=== PATIENT | female | born 1995 | race Caucasian/White ===

== ENCOUNTER 2018-03-01 15:40 | Emergency (ER) | payer OTHER ==
[~2018-03-01] VITALS: Ht 165.1 cm; Wt 68.0 kg
--- OUTSIDE RECORDS SUMMARY | 2018-03-01 15:43 | XMS REPORT | Clinical Summary ---
Author Author [facility] Address Unknown Phone Unavailable Care Team Providers Care Director Of Digital Technology Name Role Phone Sandy Davis MD PCP Allergies No Known Allergies Current Medications Prescription Sig. Disp. Refills Start End Date Status Date naproxen (NAPROSYN) 250 Take 250 mg by mouth 2 Active MG tablet (two) times a day as needed for mild pain. BLISOVI FE 05/27, , 1 TAKE 1 TABLET BY MOUTH 84 tablet 0 12/30/19 Active mg-20 mcg (21)/75 mg (7) EVERY DAY 18 per tablet BLISOVI FE 05/27, , 1 Take 1 tablet by mouth 3 06/21/19 12/29/19 Discontin mg-20 mcg (21)/75 mg (7) daily. 18 18 ued per tablet tiZANidine (ZANAFLEX) 2 Take 1 tablet (2 mg 30 tablet 2 12/12/19 01/11/20 MG tablet total) by mouth nightly 18 18 as needed for muscle spasms for up to 30 days. Active Problems Not on file Encounters Date Type Specialty Care Team Description 01/23/2018 Clinical Internal Medicine Sandy Davis MD Immunization due (Primary Support Dx) 12/28/2017 Refill Internal Medicine Sandy Davis MD 12/11/2017 Office Visit Internal Medicine Sandy Davis MD Chronic upper back pain (Primary Dx) 08/02/2017 Office Visit Internal Medicine Sandy Davis MD Well adult health check (Primary Dx); Urgency of urination; Pap smear for cervical cancer screening; Mass of right axilla; Mass of breast, right after 02/28/2017 Immunizations Name Dates Previously Given Next Due INFLUENZA QUAD 01/23/2018 Family History Medical History Relation Name Comments No Known Problems Brother Hyperlipidemia Father Multiple sclerosis Mother No Known Problems Sister No Known Problems Sister No Known Problems Sister Relation Name Status Comments Brother Alive Father Alive Maternal Grandfather Alive Maternal Grandmother Alive Mother Alive Paternal Grandfather Alive injury related problems. Paternal Grandmother Alive Sister Alive Sister Alive Sister Alive Social History Tobacco Use Types Packs/Day Years Used Date Never Smoker Smokeless Tobacco: Never Used Alcohol Use Drinks/Week oz/Week Comments No Sex Assigned at Date Recorded Not on file Last Filed Vital Signs Vital Sign Reading Time Taken Blood Pressure 109/70 12/11/2017 3:57 PM CDT Pulse 74 12/11/2017 3:57 PM CDT Temperature 36.8 C (98.2 F) 12/11/2017 3:57 PM CDT Respiratory Rate 16 12/11/2017 3:57 PM CDT Oxygen Saturation 97% 12/11/2017 3:57 PM CDT Inhaled Oxygen - - Concentration Weight 69.9 kg (154 lb) 12/11/2017 3:57 PM CDT Height 162.6 cm (5' 4") 12/11/2017 3:57 PM CDT Body Mass Index 26.43 12/11/2017 3:57 PM CDT Plan of Treatment Health Maintenance Due Date Last Done Comments CHLAMYDIA SCREENING 2009 CERVICAL CANCER SCREENING 2014 INFLUENZA VACCINE Completed 01/23/2018, 01/23/2018 Procedures Procedure Name Priority Date/Time Associated Diagnosis Comments INFLUENZA QUAD (FLUZONE Routine 01/23/2018 Immunization due 0.5ML MULTI-DOSE VIAL) 8:06 AM CDT US BREAST BILATERAL Routine 08/23/2017 LIMITED 12:00 AM CDT URINALYSIS, AUTOMATED Routine 08/02/2017 Well adult health check Results for this WITH MICROSCOPY 11:43 AM CDT procedure are in the results section. THYROID STIMULATING Routine 08/02/2017 Well adult health check Results for this HORMONE 11:43 AM CDT procedure are in the results section. LIPID PANEL Routine 08/02/2017 Well adult health check Results for this 11:43 AM CDT procedure are in the results section. VITAMIN D 25 HYDROXY Routine 08/02/2017 Well adult health check Results for this LEVEL 11:43 AM CDT procedure are in the results section. HEMOGLOBIN A1C Routine 08/02/2017 Well adult health check Results for this 11:43 AM CDT procedure are in the results section. COMPREHENSIVE METABOLIC Routine 08/02/2017 Well adult health check Results for this PANEL 11:43 AM CDT procedure are in the results section. CBC WITH PLATELET AND Routine 08/02/2017 Well adult health check Results for this DIFFERENTIAL 11:43 AM CDT procedure are in the results section. POC URINALYSIS DIPSTICK Routine 08/02/2017 Urgency of urination Results for this 11:29 AM CDT procedure are in the results section. after 02/28/2017 Results * Influenza Quad (Fluzone 0.5mL multi-dose vial) (01/23/2018 8:06 AM) * US Breast Bilateral Limited (08/23/2017) Narrative Performed At * Vitamin D 25 hydroxy level (08/02/2017 11:43 AM) Vitamin D, 25-hydroxy 34 30 - 100 ng/mL [facility] Comment: [place] Vitamin D Status 25-OH Vitamin D: Deficiency: <20 ng/mL Insufficiency: 20 - 29 ng/mL Optimal: > or=30 ng/mL For 25-OH Vitamin D testing on patients on D2-supplementation and patients for whom quantitation of D2 and D3 fractions is required, the QuestAssureD(TM) 25-OH VIT D, (D2,D3), LC/MS/MS is recommended: order code 34573 (patients >2yrs). For more information on this test, go to: http://education.[employer].XOG/faq/ZCD522 (This link is being provided for informational/educational purposes only.) Specimen Blood Other Results Text Performing Organization Information: Site ID: [id number] Name: [facility] Address: [address] [place] [phone] Director: Natalia Moseley MD Performing Organization Address City/State/Zipcode Phone Number [facility] [place] [phone] * Urinalysis, automated with microscopy (08/02/2017 11:43 AM) Color, UA YELLOW YELLOW [facility] [place] Appearance CLEAR CLEAR [facility] [place] Specific gravity, urine 1.018 1.001 - 1.035 [facility] [place] pH, urine 6.5 5.0 - 8.0 [facility] [place] Glucose, urine NEGATIVE NEGATIVE [facility] [place] Bilirubin, UA NEGATIVE NEGATIVE [facility] [place] Ketones, UA NEGATIVE NEGATIVE [facility] [place] Occult blood, urine NEGATIVE NEGATIVE [facility] [place] Protein, UA NEGATIVE NEGATIVE [facility] [place] Nitrite, UA NEGATIVE NEGATIVE [facility] [place] Leukocyte esterase, UA NEGATIVE NEGATIVE [facility] [place] WBC, UA NONE SEEN < OR=5 /HPF [facility] [place] RBC, UA NONE SEEN < OR=2 /HPF [facility] [place] Squamous epithelial NONE SEEN < OR=5 /HPF [facility] cells, UA [place] Bacteria, UA NONE SEEN NONE SEEN /HPF [facility] [place] Hyaline casts, UA NONE SEEN NONE SEEN /LPF [facility] [place] Specimen Urine Other Results Text Performing Organization Information: Site ID: [id number] Name: [facility] Address: [address] [place] [address] Director: Natalia Moseley MD Performing Organization Address City/State/Zipcode Phone Number [facility] [employer] [facility] [place] [address] [place] [address] * CBC with platelet and differential (08/02/2017 11:43 AM) WBC 6.1 3.8 - 10.8 Thousand/uL [facility] [place] RBC 4.82 3.80 - 5.10 Million/uL [facility] [place] HGB 14.1 11.7 - 15.5 g/dL [facility] [place] HCT 42.0 35.0 - 45.0 % [facility] [place] MCV 87.1 80.0 - 100.0 fL [facility] [place] MCH 29.3 27.0 - 33.0 pg [facility] [place] MCHC 33.6 32.0 - 36.0 g/dL [facility] [place] RDW 11.9 11.0 - 15.0 % [facility] [place] Platelet count 295 140 - 400 Thousand/uL [facility] [place] MPV 10.0 7.5 - 12.5 fL [facility] [place] Neutrophils, absolute 3,148 1,500 - 7,800 cells/uL [facility] [place] Lymphocytes, absolute 2,440 850 - 3,900 cells/uL [facility] [place] Monocytes, absolute 354 200 - 950 cells/uL [facility] [place] Eosinophils, absolute 128 15 - 500 cells/uL [facility] [place] Basophils, absolute 31 0 - 200 cells/uL [facility] [place] Neutrophils 51.6 % [facility] [place] Lymphocytes 40.0 % [facility] [place] Monocytes 5.8 % [facility] [place] Eosinophils 2.1 % [facility] [place] Basophils + RC 0.5 % [facility] [place] Specimen Blood Other Results Text Performing Organization Information: Site ID: [id number] Name: [facility] Address: [address] [place] [phone] Director: Natalia Moseley MD Performing Organization Address [facility] Phone Number [employer] [place] [address] * Thyroid stimulating hormone (08/02/2017 11:43 AM) TSH 1.46 mIU/L [facility] Comment: [place] Reference Range > or=20 Years0.40-4.50 Ranges First trimester0.26-2.66 Second trimester 0.55-2.73 Third trimester0.43-2.91 Specimen Blood Other Results Text Performing Organization Information: Site ID: [id number] Name: [facility] Address: [address] [place] [phone] Director: Natalia Moseley MD Performing Organization Address [facility] [place], [place] Phone Number [employer] [place] [address] * Hemoglobin A1c (08/02/2017 11:43 AM) Hemoglobin A1C 4.9 <5.7 % of total Hgb [facility] Comment: [place] For the purpose of screening for the presence of diabetes: <5.7% Consistent with the absence of diabetes 5.7-6.4%Consistent with increased risk for diabetes (predi abetes) > or=6.5%Consistent with diabetes This assay result is consistent with a decreased risk of diabetes. Currently, no consensus exists regarding use of hemoglobin A1c for diagnosis of diabetes in children. According to [place] Diabetes Association (ADA) guidelines, hemoglobin A1c <7.0% represents optimal control in non- diabetic patients. Different metrics may apply to specific patient populations. Standards of Medical Care in Diabetes(ADA). Specimen Blood Other Results Text Performing Organization Information: Site ID: [id number] Name: [facility] Address: [address] [place] [phone] Director: Natalia Moseley MD Performing Organization Address [facility] Phone Number [employer] [place] [address] * Lipid panel (08/02/2017 11:43 AM) Cholesterol, total 105 <200 mg/dL [facility] HDL cholesterol 44 (L) >50 mg/dL [facility] [place] Triglycerides 86 <150 mg/dL [facility] LDL cholesterol 44 mg/dL (calc) [facility] [employer] [facility] Comment: [place] Reference range: <100 Desirable range <100 mg/dL for patients with CHD or diabetes and <70 mg/dL for diabetic patients with known heart disease. LDL-C is now calculated using the Bhupinder calculation, which is a validated novel method providing better accuracy than the Friedewald equation in the estimation of LDL-C. Casa TAVAREZ et al. BELKIS. 2013;310(31): 2105-5764 (http://education.[employer]/faq/PTX267) Cholesterol/HDL ratio 2.4 <5.0 (calc) [facility] [place] Non-HDL cholesterol 61 <130 mg/dL (calc) [facility] Comment: [place] For patients with diabetes plus 1 major ASCVD risk factor, treating to a non-HDL-C goal of <100 mg/dL (LDL-C of <70 mg/dL) is considered a therapeutic option. Specimen Blood Other Results Text Performing Organization Information: Site ID: [id number] Name: [facility] Address: [address] [place] [phone] Director: Natalia Moseley MD Performing Organization Address City/State/Zipcode Phone Number [facility] [place] [address] * Comprehensive metabolic panel (08/02/2017 11:43 AM) Glucose 72 65 - 99 mg/dL [facility] Comment: [place] Fasting reference interval BUN, whole blood 10 7 - 25 mg/dL [facility] Creatinine 0.73 0.50 - 1.10 mg/dL [facility] [place] EGFR Non-Afr. Citizen [place] 115 > OR=60 mL/min/1.73m2 [facility] EGFR 134 > OR=60 mL/min/1.73m2 [facility] BUN/creatinine ratio NOT APPLICABLE 6 - 22 (calc) [facility] Sodium 139 135 - 146 mmol/L [facility] Potassium 4.5 3.5 - 5.3 mmol/L [facility] Chloride 105 98 - 110 mmol/L [facility] CO2 28 20 - 31 mmol/L [facility] Calcium 9.6 8.6 - 10.2 mg/dL [facility] Protein 7.3 6.1 - 8.1 g/dL [facility] Albumin, S 4.3 3.6 - 5.1 g/dL [facility] Globulin, total 3.0 1.9 - 3.7 g/dL (calc) [facility] Albumin/globulin ratio 1.4 1.0 - 2.5 (calc) [facility] Total bilirubin 0.5 0.2 - 1.2 mg/dL [facility] Alkaline phosphatase 46 33 - 115 U/L [facility] AST 14 10 - 30 U/L [facility] ALT 15 6 - 29 U/L [facility] [place] Specimen Blood Other Results Text Performing Organization Information: Site ID: [id number] Name: [facility] Address: [address] [place] [phone] Director: Natalia Moseley MD Performing Organization Address City/State/[facility] Phone Number [facility] [address] [address] * POC urinalysis dipstick (08/02/2017 11:29 AM) Color urine, POC Yellow Clarity urine, POC Clear Glucose urine, POC Negative Negative Bilirubin urine, POC Negative Negative Ketones urine, POC Negative Negative Specific gravity urine, 1.015 1.005 - 1.030 POC Blood urine, POC Negative Negative pH urine, POC 6.0 5.0, 5.5, 6.0, 6.5, 7.0, 7.5, 8.0, 8.5 Protein urine, POC Trace (A) Negative Urobilinogen urine, POC <2.0 <2.0 Nitrite urine, POC Negative Negative Leukocyte esterase urine, Negative Negative POC Specimen Urine after 02/28/2017 Insurance Payer Benefit Subscriber ID Type Phone Address Plan / Group AETNA AETNA xxxxxxxxxx HMO HMO,POS,EP O, [facility] [address]
[2018-03-01] MEDS ORDERED: ASPIRIN 81 MG CHEW TAB PO ONE (16:00)
[2018-03-01 16:26] LABS: BASOPHILS % 0.5 % (0.0-1.0); EOSINOPHILS # (AUTO) 0.1 (0.0-0.4); EOSINOPHILS % 1.4 % (0.0-6.0); HEMATOCRIT 43.1 % (34.2-44.1); HEMOGLOBIN 14.7 g/dL (12.0-16.0); LYMPHOCYTES # (AUTO) 3.3 (1.0-3.2); LYMPHOCYTES % 43.2 % (18.0-39.1); MEAN CORPUSCULAR HEMOGLOBIN 30.2 pg (28-32); MEAN CORPUSCULAR HGB CONC 34.1 g/dL (31-35); MEAN CORPUSCULAR VOLUME 88.7 fL (81-99); MONOCYTES # (AUTO) 0.4 (0.2-0.8); MONOCYTES % 5.6 % (4.4-11.3); NEUTROPHILS # (AUTO) 3.8 (2.1-6.9); NEUTROPHILS % 49.2 % (38.7-80.0); PLATELET COUNT 270 x10e3/uL (140-360); RED BLOOD COUNT 4.86 x10e6/uL (3.6-5.1); RED CELL DISTRIBUTION WIDTH 12.5 % (11.7-14.4)
[2018-03-01 16:31] LABS: INR 0.9
[2018-03-01 16:41] LABS: ALANINE AMINOTRANSFERASE 15 IU/L (0-55); ALBUMIN 4.5 g/dL (3.5-5.0); ALBUMIN/GLOBULIN RATIO 1.2 (0.8-2.0); ALKALINE PHOSPHATASE 51 IU/L (40-150); ANION GAP 13.6 mmol/L (8-16); BLOOD UREA NITROGEN 15 mg/dL (7-26); BUN/CREATININE RATIO 18 (6-25); CALCIUM 10.6 mg/dL (8.4-10.2); CARBON DIOXIDE 24 mmol/L (22-29); CHLORIDE 99 mmol/L (98-107); CREATINE KINASE 89 IU/L (29-168); CREATININE, SERUM 0.85 mg/dL (0.57-1.11); EST GLOMERULAR FILTRATION RATE > 60 ML/MIN (60-); GLUCOSE 80 mg/dL (74-118); LIPASE 25 U/L (8-78); POTASSIUM 3.6 mmol/L (3.5-5.1); SODIUM 133 mmol/L (136-145)
[2018-03-01 17:00] LABS: BILIRUBIN,URINE NEGATIVE (NEGATIVE); CLARITY,URINE CLEAR (CLEAR); COLOR,URINE YELLOW (YELLOW); KETONES,URINE NEGATIVE (NEGATIVE); LEUKOCYTE ESTERASE ,URINE NEGATIVE (NEGATIVE); NITRITE,URINE NEGATIVE (NEGATIVE); PROTEIN,URINE DIPSTICK NEGATIVE (NEGATIVE); URINE UROBILINOGEN 0.2 mg/dL (0.2 - 1)
[2018-03-01 17:01] LABS: THYROID STIMULATING HORMONE 1.549 uIU/mL (0.350-4.940)
[2018-03-01 17:01] LABS: AMPHETAMINES SCREEN,URINE NEGATIVE (NEGATIVE); BENZODIAZEPINES SCREEN,URINE NEGATIVE (NEGATIVE); PHENCYCLIDINE SCREEN,URINE NEGATIVE (NEGATIVE); PREGNANCY TEST, URINE NEGATIVE (NEGATIVE)
[2018-03-01 17:08] LABS: AMORPHOUS SEDIMENT,URINE MODERATE (FEW); BACTERIA,URINE MANY /HPF; EPITHELIAL CELLS,URINE FEW /LPF; RBC,URINE 0-5 /HPF (0-5)
--- NOTE | 2018-03-01 17:12 | Diagnostic Imaging Report ---
EXAMINATION: CHEST 2 VIEWS INDICATION: High heart rate. COMPARISON: None FINDINGS: TUBES and LINES: None. LUNGS: Lungs are well inflated. Lungs are clear. There is no evidence of pneumonia or pulmonary edema. PLEURA: No pleural effusion or pneumothorax. HEART AND MEDIASTINUM: The cardiomediastinal silhouette is unremarkable. BONES AND SOFT TISSUES: No acute osseous lesion. UPPER ABDOMEN: No free air under the diaphragm. IMPRESSION: No acute thoracic abnormality. Signed by: Dr. Carmen Heller M.D. on 03/01/2018 5:09 PM
[2018-03-01 18:48] VITALS: BP 123/93
== END 2018-03-01 18:50 | disposition home or self-care (01) ==
LOC: ER 15:40
DX: R00.2 Palpitations (principal); R42 Dizziness and giddiness
CPT/HCPCS: 36415; 71046; 80053; 80307; 81001; 81025; 82550; 82553; 83690; 84443; 84484; 85025; 85379; 85610; 85730; 93005; 99283